=== PATIENT | female | born 1940 | race Caucasian/White ===

== ENCOUNTER 2016-04-21 08:10 | Outpatient (CLI) | payer MEDICARE, OTHER | END 2016-04-21 08:11 | disposition home or self-care (01) | DX: Z12.31 Encounter for screening mammogram for malignant neoplasm of breast (principal) ==

== ENCOUNTER 2017-05-24 06:48 | Outpatient (CLI) | payer MEDICARE, OTHER ==
[2017-05-24 07:05] LABS: BASOPHILS # (AUTO) 0.1 10^3/uL (0.0-0.1); BASOPHILS % (AUTO) 1.1 %; EOSINOPHILS # (AUTO) 0.3 10^3/uL (0.0-0.7); EOSINOPHILS % (AUTO) 2.8 %; HGB - HEMOGLOBIN 13.7 g/dL (12.0-16.0); LYMPHOCYTES # (AUTO) 1.5 10^3/uL (1.5-3.5); LYMPHOCYTES % (AUTO) 16.6 %; MEAN CORPUSCULAR HEMOGLOBIN 29.9 pg (27.0-31.0); MEAN CORPUSCULAR HGB CONC 32.8 g/dL (32.0-36.0); MEAN CORPUSCULAR VOLUME 90.9 fL (81.0-99.0); MEAN PLATELET VOLUME 8.1 fL (7.9-10.8); MONOCYTES # (AUTO) 0.5 10^3/uL (0.0-1.0); MONOCYTES % (AUTO) 5.2 %; NEUTROPHILS # (AUTO) 6.8 10^3/uL (1.5-6.6); NEUTROPHILS % (AUTO) 74.3 %; PLT - PLATELET COUNT 218 10^3/uL (130-450); RED CELL DISTRIBUTION WIDTH 13.5 % (12.0-15.0); WHITE BLOOD COUNT 9.1 x10^3/uL (4.8-10.8)
[2017-05-24 07:20] LABS: ALBUMIN 4.3 g/dL (3.2-5.5); ALBUMIN/GLOBULIN RATIO 1.3 (1.0-2.2); ALKALINE PHOSPHATASE 65 IU/L (42-121); ALT ALANINE AMINOTRANSFERASE 21 IU/L (10-60); AST ASPARTATE AMINOTRANSFERASE 23 IU/L (10-42); BILIRUBIN,TOTAL 0.5 mg/dL (0.2-1.0); BUN - BLOOD UREA NITROGEN 22 mg/dL (6-20); CARBON DIOXIDE - CO2 24 mmol/L (21-32); CHLORIDE 99 mmol/L (101-111); CHOL/HDL RATIO 3.7 (<4.4); CHOLESTEROL 157 mg/dL; GFR - MDRD 54 (>89); GLUCOSE 137 mg/dL (70-100); HDL CHOLESTEROL 42 mg/dL; LDL CHOLESTEROL,CALCULATED 96 mg/dL; LDL/HDL RATIO 2.3 (<4.4); SODIUM 136 mmol/L (135-145); TOTAL PROTEIN 7.5 g/dL (6.7-8.2); VLDL CHOLESTEROL 19 mg/dL
[2017-05-24 07:22] LABS: HB2 TOTAL 15.5 g/dL; HEMOGLOBIN A1C 0.72 g/dL; HEMOGLOBIN A1C % 6.4 % (4.6-6.2)
[2017-05-24 08:19] LABS: THYROID STIMULATING HORMONE 2.88 uIU/mL (0.34-5.60)
[2017-05-24 10:50] LABS: BILIRUBIN,URINE NEGATIVE (NEGATIVE); GLUCOSE, URINE (UA) NEGATIVE (NEGATIVE); KETONES,URINE (UA) NEGATIVE (NEGATIVE); LEUKOCYTE ESTERASE, URINE TRACE (NEGATIVE); NITRITE,URINE NEGATIVE (NEGATIVE); OCCULT BLOOD,URINE NEGATIVE (NEGATIVE); PROTEIN,URINE NEGATIVE (NEGATIVE); UROBILINOGEN,URINE 0.2 (NORMAL) E.U./dL (NORMAL)
[2017-05-24 10:57] LABS: CLARITY,URINE CLEAR (CLEAR)
[2017-05-24 11:11] LABS: RBC,URINE 0-5 /HPF (0-5); SQUAMOUS EPITHELIAL CELL,UR RARE Squamous (<= Few)
[2017-05-24 11:12] LABS: BACTERIA,URINE Rare /HPF (None Seen)
[2017-05-24 11:21] LABS: CREATININE,URINE 115.9 mg/dL; PROTEIN/CREATININE RATIO,URINE 0.2 (<=0.2)
== END 2017-05-24 06:49 | disposition home or self-care (01) ==
LOC: LAB 06:48
PROVIDERS: ATTEND Internal Medicine
DX: Z79.899 Other long term (current) drug therapy (principal); I10 Essential (primary) hypertension; R74.8 Abnormal levels of other serum enzymes; Z87.19 Personal history of other diseases of the digestive system; G43.909 Migraine, unspecified, not intractable, without status migrainosus; E11.9 Type 2 diabetes mellitus without complications; M85.80 Other specified disorders of bone density and structure, unspecified site; Z86.19 Personal history of other infectious and parasitic diseases; R63.0 Anorexia; E53.8 Deficiency of other specified B group vitamins
CPT/HCPCS: 36415; 80053; 80061; 81001; 82570; 82607; 83036; 83721; 84156; 84443; 85025; 87086

== ENCOUNTER 2017-05-24 07:03 | Outpatient (CLI) | payer MEDICARE, OTHER ==
--- NOTE | 2017-05-25 16:51 | Mammography Report ---
DIGITAL SCREENING MAMMOGRAM: 05/24/2017 CLINICAL INDICATION: A 77-year-old with history of benign right breast biopsy, for screening. COMPARISON: 04/2016, 03/2015, 03/2014, 12/2012, 08/2011, 07/2010, 06/2009. TECHNIQUE: Routine CC and MLO projections were obtained of the breasts. FINDINGS: The breasts demonstrate scattered fibroglandular densities bilaterally. Coarse and punctate, typically benign calcifications are present. No suspicious masses, clustered microcalcifications, or regions of architectural distortion are identified. IMPRESSION: BENIGN FINDINGS. RECOMMENDATION: ROUTINE ANNUAL SCREENING UNLESS OTHERWISE CLINICALLY INDICATED. BIRADS CATEGORY 2-BENIGN FINDINGS. STANDARD QUALIFYING STATEMENTS: 1. This examination was reviewed with the aid of Computer-Aided Detection (CAD). 2. A negative or benign imaging report should not delay biopsy if clinically suspicious findings are present. Consider surgical consultation if warranted. More than 5% of cancers are not identified by imaging. 3. Dense breasts may obscure an underlying neoplasm. TD: 05/25/2017 16:47
== END 2017-05-24 07:04 | disposition home or self-care (01) ==
LOC: DI 07:03
PROVIDERS: ATTEND Internal Medicine
DX: Z12.31 Encounter for screening mammogram for malignant neoplasm of breast (principal)
CPT/HCPCS: 77067

== ENCOUNTER 2018-06-18 07:34 | Outpatient (CLI) | payer MEDICARE, OTHER ==
[2018-06-18 08:00] LABS: BASOPHILS % (AUTO) 0.8 %; EOSINOPHILS # (AUTO) 0.1 10^3/uL (0.0-0.7); EOSINOPHILS % (AUTO) 1.9 %; HGB - HEMOGLOBIN 13.8 g/dL (12.0-16.0); LYMPHOCYTES # (AUTO) 1.6 10^3/uL (1.5-3.5); LYMPHOCYTES % (AUTO) 30.7 %; MEAN CORPUSCULAR HEMOGLOBIN 30.2 pg (27.0-31.0); MEAN CORPUSCULAR HGB CONC 33.5 g/dL (32.0-36.0); MEAN CORPUSCULAR VOLUME 90.1 fL (81.0-99.0); MEAN PLATELET VOLUME 8.3 fL (7.9-10.8); MONOCYTES # (AUTO) 0.4 10^3/uL (0.0-1.0); MONOCYTES % (AUTO) 8.2 %; NEUTROPHILS % (AUTO) 58.4 %; PLT - PLATELET COUNT 222 10^3/uL (130-450); RED BLOOD COUNT 4.55 10^6/uL (4.20-5.40); RED CELL DISTRIBUTION WIDTH 12.7 % (12.0-15.0); WHITE BLOOD COUNT 5.2 x10^3/uL (4.8-10.8)
[2018-06-18 08:18] LABS: HB2 TOTAL 15.4 g/dL; HEMOGLOBIN A1C 0.72 g/dL; HEMOGLOBIN A1C % 6.4 % (4.6-6.2)
[2018-06-18 08:34] LABS: ALBUMIN 4.1 g/dL (3.2-5.5); ALBUMIN/GLOBULIN RATIO 1.1 (1.0-2.2); ALKALINE PHOSPHATASE 69 IU/L (42-121); ALT ALANINE AMINOTRANSFERASE 33 IU/L (10-60); AST ASPARTATE AMINOTRANSFERASE 32 IU/L (10-42); BILIRUBIN,TOTAL 0.9 mg/dL (0.2-1.0); BUN - BLOOD UREA NITROGEN 19 mg/dL (6-20); CHOL/HDL RATIO 4.3 (<4.4); CHOLESTEROL 149 mg/dL; GFR - MDRD 54 (>89); HDL CHOLESTEROL 35 mg/dL; LDL CHOLESTEROL,CALCULATED 84 mg/dL; LDL/HDL RATIO 2.4 (<4.4); TOTAL PROTEIN 7.7 g/dL (6.7-8.2); VLDL CHOLESTEROL 30 mg/dL
[2018-06-18 09:15] LABS: CALCIUM 9.8 mg/dL (8.5-10.3); CARBON DIOXIDE - CO2 28 mmol/L (21-32); CHLORIDE 98 mmol/L (101-111); GLUCOSE 129 mg/dL (70-100); SODIUM 139 mmol/L (135-145)
[2018-06-18 10:03] LABS: THYROID STIMULATING HORMONE 2.26 uIU/mL (0.34-5.60)
== END 2018-06-18 07:35 | disposition home or self-care (01) ==
LOC: LAB 07:34
PROVIDERS: ATTEND Internal Medicine
DX: R19.7 Diarrhea, unspecified (principal); I10 Essential (primary) hypertension; R74.8 Abnormal levels of other serum enzymes; E53.8 Deficiency of other specified B group vitamins; E11.9 Type 2 diabetes mellitus without complications; Z79.899 Other long term (current) drug therapy
CPT/HCPCS: 36415; 80053; 80061; 81001; 81003; 82043; 82570; 82607; 83036; 83721; 84443; 85025; 87086

== ENCOUNTER 2018-06-20 09:00 | Outpatient (CLI) | payer MEDICARE, OTHER ==
--- NOTE | 2018-06-21 09:03 | Mammography Report ---
Reason: SCREENING MAMMO Procedure Date: 06/20/2018 Accession Number: [id number] / [id number] Procedure: GLENDY - Screening Mammo w/Gee CPT Code: FULL RESULT: EXAM: Screening Mammo w/Gee DATE: 06/20/2018 10:19 AM CLINICAL HISTORY: Screening encounter. History of greater than 20 years of hormone therapy. History of breast biopsy of the right breast, benign results. TECHNIQUE: Bilateral CC and MLO views were obtained. COMPARISON: 06/13/2017 through 03/31/2014. FINDINGS: The breasts demonstrate scattered fibroglandular densities bilaterally. There are coarse typically benign calcifications. No suspicious masses, clustered microcalcifications, or regions of architectural distortion are identified. IMPRESSION: Benign findings RECOMMENDATION: Routine annual screening unless otherwise clinically indicated. BIRADS CATEGORY 2: Benign findings STANDARD QUALIFYING STATEMENTS: 1. This examination was not reviewed with the aid of Computer-Aided Detection (CAD). 2. A negative or benign imaging report should not delay biopsy if clinically suspicious findings are present. Consider surgical consultation if warrented. More than 5% of cancers are not identified by imaging. 3. Dense breasts may obscure an underlying neoplasm. 4. This examination was reviewed with the aid of 3D breast imaging (tomosynthesis).
== END 2018-06-20 09:01 | disposition home or self-care (01) ==
LOC: DI 09:00
PROVIDERS: ATTEND Internal Medicine
DX: Z12.31 Encounter for screening mammogram for malignant neoplasm of breast (principal)
CPT/HCPCS: 77063; 77067

== ENCOUNTER 2019-12-03 08:13 | Outpatient (CLI) | payer MEDICARE, OTHER ==
--- NOTE | 2019-12-04 10:04 | Mammography Report ---
BILATERAL DIGITAL SCREENING MAMMOGRAM 3D/2D: 12/03/2019 CLINICAL: Routine screening. Comparison is made to exams dated: 06/20/2018 mammogram, 05/24/2017 mammogram, 04/21/2016 mammogram, 03/31 mammogram, 03/31/2014 mammogram, and 01/07/2013 mammogram - [facility]. There are scattered fibroglandular elements in both breasts. No significant masses, calcifications, or other findings are seen in either breast. There has been no significant interval change. IMPRESSION: NEGATIVE There is no mammographic evidence of malignancy. A 1 year screening mammogram is recommended. This exam was interpreted at Station ID: [id number]. NOTE: For mammograms, a report in lay terms will be sent to the patient. Approximately 15% of breast malignancies will not be visualized mammographically. In the management of a palpable breast mass, a negative mammogram must not discourage biopsy of a clinically suspicious lesion. Electronically Signed By: Shante leong/facundo:12/03/2019 11:38:42 ACR BI-RADS Category 1: Negative 3341F PARENCHYMAL PATTERN: (A) - The breast(s) demonstrate(s) scattered fibroglandular densities. BI-RADS CATEGORY: (1) - 1 RECOMMENDATION: (ANNUAL) - Recommend routine annual screening mammography. [id number] 1 year screening LATERALITY: (B)
== END 2019-12-03 08:14 | disposition home or self-care (01) ==
LOC: DI 08:13
PROVIDERS: ATTEND Internal Medicine
DX: Z12.31 Encounter for screening mammogram for malignant neoplasm of breast (principal)
CPT/HCPCS: 77063; 77067

== ENCOUNTER 2020-06-03 11:38 | Outpatient (CLI) | payer MEDICARE, OTHER ==
--- NOTE | 2020-06-03 15:39 | XRAY Report ---
PROCEDURE: Wrist 3 View RT INDICATIONS: RIGHT WRIST PAIN TECHNIQUE: 3 views of the wrist were acquired. COMPARISON: None. FINDINGS: Bones: No acute fractures or dislocations. No suspicious bony lesions. There are severe degenerati ve changes involving the base of the right first and second carpometacarpal joints. Prominent margina l osteophyte formation and surrounding soft tissue calcifications. Degenerative changes of the trisca phe joint. Scaphoid view: Scaphoid appears intact. Scapholunate interval is maintained. Soft tissues: No suspicious soft tissue calcifications. There appears to be soft tissue calcificati ons involving the triangular fibrocartilage complex compatible with chondrocalcinosis. IMPRESSION: Right wrist without acute fracture or dislocation. Severe degenerative changes of the right wrist involving the first and second carpometacarpal joints. Mild degenerative changes of the right triscaphe joint. Reviewed by: Kal Nunez MD on 06/03/2020 3:38 PM PST Approved by: Kal Nunez MD on 06/03/2020 3:38 PM PST Station ID: [id number]
== END 2020-06-03 11:39 | disposition home or self-care (01) ==
LOC: DI 11:38
PROVIDERS: ATTEND Internal Medicine
DX: M25.531 Pain in right wrist (principal); M19.031 Primary osteoarthritis, right wrist

== ENCOUNTER 2020-12-29 07:53 | Outpatient (CLI) | payer MEDICARE, OTHER ==
--- NOTE | 2020-12-29 08:09 | XRAY Report ---
PROCEDURE: Chest 2 View X-Ray INDICATIONS: COUGH TECHNIQUE: 2 view(s) of the chest. COMPARISON: None. FINDINGS: Surgical changes and devices: None. Lungs and pleura: No pleural effusions or pneumothorax. Lungs are clear. Mediastinum: Mediastinal contours are normal. Heart size is normal. Bones and chest wall: No suspicious bony abnormalities. Soft tissues appear unremarkable. IMPRESSION: No evidence acute pulmonary process. Reviewed by: Santhosh Still MD on 12/29/2020 8:08 AM PDT Approved by: Santhosh Still MD on 12/29/2020 8:08 AM PDT Station ID: [id number]
--- NOTE | 2020-12-29 10:02 | MRI Report ---
PROCEDURE: Brain W/O INDICATIONS: DYSARTHRIA TECHNIQUE: Noncontrast axial T1 spin echo, axial T2 fast spin echo, sagittal and axial FLAIR, coronal T2 fast sp in echo, axial gradient echo, axial diffusion and ADC through the brain. COMPARISON: None. FINDINGS: Image quality: Excellent. CSF Spaces: Basal cisterns are patent. No extra-axial fluid collections. Ventricles are normal in size and shape. Brain: No intracranial masses or hemorrhage. Rubio/white matter interface is normal. Age-related vol ume loss and mild small vessel ischemic change. Brainstem appears normal. Diffusion-weighted images demonstrate no acute ischemic insult. Tiny old anterior pontine lacunar infarction with hemosiderin d eposition. Tiny old anterior right thalamic lacunar infarction with hemosiderin deposition. Old tiny left body of caudate lacunar infarct. Normal intravascular flow voids are present. Skull and face: Calvarium has normal marrow signal. Orbits appear normal. Sinuses: Sinuses and mastoids are clear. IMPRESSION: 1. 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 2. Age-related volume loss and mild small vessel ischemic change. 3. No evidence of acute stroke, hemorrhage, or mass. Reviewed by: Santhosh Still MD on 12/29/2020 10:01 AM PDT Approved by: Santhosh Still MD on 12/29/2020 10:01 AM PDT Station ID: [id number]
== END 2020-12-29 07:54 | disposition home or self-care (01) ==
LOC: DI 07:53
PROVIDERS: ATTEND Internal Medicine
DX: R05 Cough (principal); R47.1 Dysarthria and anarthria; Z86.73 Personal history of transient ischemic attack (TIA), and cerebral infarction without residual deficits

== ENCOUNTER 2021-01-06 08:13 | Outpatient (CLI) | payer MEDICARE, OTHER ==
--- NOTE | 2021-01-07 08:42 | Mammography Report ---
BILATERAL DIGITAL SCREENING MAMMOGRAM 3D/2D: 01/06/2021 CLINICAL: Routine screening. Comparison is made to exams dated: 12/03/2019 mammogram, 06/20/2018 mammogram, 05/24/2017 mammogram, 2016 mammogram, 03/31/2015 mammogram, and 03/31/2014 mammogram - [facility]. There are scattered fibroglandular elements in both breasts. No significant masses, calcifications, or other findings are seen in either breast. There has been no significant interval change. IMPRESSION: NEGATIVE There is no mammographic evidence of malignancy. A 1 year screening mammogram is recommended. This exam was interpreted at Station ID: [id number]. NOTE: For mammograms, a report in lay terms will be sent to the patient. Approximately 15% of breast malignancies will not be visualized mammographically. In the management of a palpable breast mass, a negative mammogram must not discourage biopsy of a clinically suspicious lesion. Electronically Signed By: Kal cesar/facundo:01/06/2021 09:19:02 ACR BI-RADS Category 1: Negative 3341F PARENCHYMAL PATTERN: (A) - The breast(s) demonstrate(s) scattered fibroglandular densities. BI-RADS CATEGORY: (1) - 1 RECOMMENDATION: (ANNUAL) - Recommend routine annual screening mammography. [id number] 1 year screening LATERALITY: (B)
== END 2021-01-06 08:14 | disposition home or self-care (01) ==
LOC: DI 08:13
PROVIDERS: ATTEND Internal Medicine
DX: Z12.31 Encounter for screening mammogram for malignant neoplasm of breast (principal)

== ENCOUNTER 2021-02-09 07:01 | Outpatient (CLI) | payer MEDICARE, OTHER ==
--- NOTE | 2021-02-09 08:38 | Ultrasound Report ---
PROCEDURE: Carotid Doppler Complete INDICATIONS: CVA TECHNIQUE: Color and pulse Doppler interrogation was performed of both carotid systems, with image documentation and velocity measurements. COMPARISON: None. FINDINGS: Right side: Brachial blood pressure: 142/60 mm Hg. Common carotid artery peak systolic velocity: 78 cm/sec. Internal carotid artery peak systolic velocity: 65.1 cm/sec. Internal carotid artery end diastolic velocity: 22.4 cm/sec. External carotid artery peak systolic velocity: 82.7 cm/sec. ICA/CCA peak systolic ratio: 0.8 . Rubio scale imaging description: Mild atheromatous change with intimal thickening. Percent internal carotid artery stenosis: Less than 50% . Vertebral artery: Flow direction is antegrade. Left side: Brachial blood pressure: 133/65 mm Hg. Common carotid artery peak systolic velocity: 60.1 cm/sec. Internal carotid artery peak systolic velocity: 95.8 cm/sec. Internal carotid artery end diastolic velocity: 21 cm/sec. External carotid artery peak systolic velocity: 83.6 cm/sec. ICA/CCA peak systolic ratio: 0.6 . Rubio scale imaging description: Mild atheromatous change with intimal thickening. Percent internal carotid artery stenosis: Less than 50% . Vertebral artery: Flow direction is antegrade. IMPRESSION: No significant abnormality. The estimate of stenosis included in the report of the imaging study was calculated using the NASCET method Reviewed by: Ezequiel Dugan MD on 02/09/2021 8:37 AM PDT Approved by: Ezequiel Dugan MD on 02/09/2021 8:37 AM PDT Station ID: [id number]
== END 2021-02-09 07:02 | disposition home or self-care (01) ==
LOC: DI 07:01
PROVIDERS: ATTEND Internal Medicine
DX: I63.9 Cerebral infarction, unspecified (principal)
CPT/HCPCS: 93306; 93880

== ENCOUNTER 2021-05-31 16:22 | Outpatient (CLI) | payer MEDICARE, OTHER ==
[2021-05-31 16:41] LABS: CALCIUM 9.5 mg/dL (8.5-10.3); CREATININE 2.1 mg/dL (0.4-1.0); POTASSIUM 4.4 mmol/L (3.5-5.0)
[2021-05-31 21:11] LABS: ESTIMATED AVERAGE GLUCOSE 171 mg/dL (70-100); HEMOGLOBIN A1c% 7.6 % (4.27-6.07)
== END 2021-05-31 16:23 | disposition home or self-care (01) ==
LOC: LAB.R 16:22
PROVIDERS: ATTEND Internal Medicine
DX: M25.50 Pain in unspecified joint (principal); I63.9 Cerebral infarction, unspecified; E11.9 Type 2 diabetes mellitus without complications
CPT/HCPCS: 80048; 83036

== ENCOUNTER 2021-07-22 10:33 | Outpatient (CLI) | payer MEDICARE, OTHER ==
--- NOTE | 2021-07-22 19:36 | Ultrasound Report ---
PROCEDURE: Renal ultrasound INDICATIONS: KIDNEY INJURY TECHNIQUE: Real-time scanning was performed of the retroperitoneal organs, with image documentation. COMPARISON: None. FINDINGS: Kidneys: Kidneys are normal in size. Right kidney measures 8.0 cm long; left kidney measures 9.0 cm long. Right renal cortical thickness is 0.9 cm; left renal cortical thickness is 1.1 cm. Left-sided renal simple renal cysts measure up to 1.1 cm. Mild right renal cortical thinning. On the right, the superior, mid and inferior resistive indices are 0.63, 0.66, 0.63 respectively. Similarly on the left, the superior, mid and inferior resistive indices are 0.55, 0.63, 0.62 respecti vely Bladder: Pre-void bladder volume is 254 mL. Post-void residual is 80 mL. Pre-void images demonstra te no intraluminal masses or stones. On pre-void images, both ureteral jets are noted with color Dop pler interrogation. (Of note, ureteral jets may not be detectable in up to 25% of cases due to insuf ficient differences in specific gravity between ureteral and bladder urine). Miscellaneous: No free abdominal fluid. IMPRESSION: 1. Right renal cortical thinning and left renal simple cysts. 2. Normal resistive indices. 3. Postvoid residual measures 80 cc Reviewed by: Seamus Oneill MD on 07/22/2021 6:34 PM JS Approved by: Seamus Oneill MD on 07/22/2021 6:34 PM AKDIMAS Station ID: [id number]
== END 2021-07-22 10:34 | disposition home or self-care (01) ==
LOC: DI 10:33
PROVIDERS: ATTEND Internal Medicine Nephrology
DX: N17.9 Acute kidney failure, unspecified (principal); N28.1 Cyst of kidney, acquired

== ENCOUNTER 2021-07-28 10:17 | Outpatient (CLI) | payer MEDICARE, OTHER ==
[2021-07-28 10:34] LABS: BASOPHILS # (AUTO) 0.1 10^3/uL (0.0-0.1); BASOPHILS % (AUTO) 0.8 %; EOSINOPHILS # (AUTO) 0.2 10^3/uL (0.0-0.7); EOSINOPHILS % (AUTO) 3.6 %; HCT - HEMATOCRIT 37.2 % (37.0-47.0); HGB - HEMOGLOBIN 12.3 g/dL (12.0-16.0); LYMPHOCYTES # (AUTO) 1.3 10^3/uL (1.5-3.5); LYMPHOCYTES % (AUTO) 21.2 %; MEAN CORPUSCULAR HEMOGLOBIN 30.7 pg (27.0-31.0); MEAN CORPUSCULAR HGB CONC 33.1 g/dL (32.0-36.0); MEAN CORPUSCULAR VOLUME 92.8 fL (81.0-99.0); MEAN PLATELET VOLUME 10.9 fL (7.9-10.8); MONOCYTES # (AUTO) 0.5 10^3/uL (0.0-1.0); MONOCYTES % (AUTO) 7.3 %; NEUTROPHILS # (AUTO) 4.2 10^3/uL (1.5-6.6); NEUTROPHILS % (AUTO) 66.6 %; PLT - PLATELET COUNT 180 10^3/uL (130-450); RED BLOOD COUNT 4.01 10^6/uL (4.20-5.40); RED CELL DISTRIBUTION WIDTH 12.8 % (12.0-15.0); WHITE BLOOD COUNT 6.3 x10^3/uL (4.8-10.8)
[2021-07-28 10:44] LABS: CALCIUM 9.2 mg/dL (8.5-10.3); CREATININE 1.7 mg/dL (0.4-1.0)
[2021-07-30 21:05] LABS: ALBUMIN 3.9 g/dL (3.8-4.8); ALPHA 1 GLOBULIN 0.3 g/dL (0.2-0.3); ALPHA 2 GLOBULIN 0.8 g/dL (0.5-0.9); BETA 1 GLOBULIN 0.5 g/dL (0.4-0.6); BETA 2 GLOBULIN 0.4 g/dL (0.2-0.5)
== END 2021-07-28 10:18 | disposition home or self-care (01) ==
LOC: LAB 10:17
PROVIDERS: ATTEND Internal Medicine Nephrology
DX: N17.9 Acute kidney failure, unspecified (principal); D63.1 Anemia in chronic kidney disease
CPT/HCPCS: 36415; 80048; 81599; 84155; 84165; 85025; 86021; 86036

== ENCOUNTER 2021-08-15 13:19 | Outpatient (CLI) | payer MEDICARE, OTHER ==
[2021-08-15 13:43] LABS: CREATININE 1.6 mg/dL (0.4-1.0)
== END 2021-08-15 13:20 | disposition home or self-care (01) ==
LOC: LAB 13:19
PROVIDERS: ATTEND Internal Medicine Nephrology
DX: N05.9 Unspecified nephritic syndrome with unspecified morphologic changes (principal)
CPT/HCPCS: 36415; 82565

== ENCOUNTER 2021-09-14 13:14 | Outpatient (CLI) | payer MEDICARE, OTHER ==
[2021-09-14 13:37] LABS: CREATININE 1.6 mg/dL (0.4-1.0)
== END 2021-09-14 13:15 | disposition home or self-care (01) ==
LOC: LAB 13:14
PROVIDERS: ATTEND Internal Medicine Nephrology
DX: N05.9 Unspecified nephritic syndrome with unspecified morphologic changes (principal)
CPT/HCPCS: 36415; 82565

== ENCOUNTER 2022-01-13 07:40 | Outpatient (CLI) | payer MEDICARE, OTHER ==
--- NOTE | 2022-01-16 10:05 | Mammography Report ---
BILATERAL DIGITAL SCREENING MAMMOGRAM 3D/2D: 01/13/2022 CLINICAL: Routine screening. Comparison is made to exams dated: 01/06/2021 mammogram, 12/03/2019 mammogram, 06/20/2018 mammogram, 05/24 mammogram, 04/21/2016 mammogram, and 03/31/2015 mammogram - [facility]. There are scattered areas of fibroglandular density in both breasts (category b / 25%-50% glandular t issue). There is a benign calcification in the right breast. There also are benign calcifications in the lef t breast. No significant masses, calcifications, or other findings are seen in either breast. There has been no significant interval change. IMPRESSION: BENIGN There is no mammographic evidence of malignancy. A 1 year screening mammogram is recommended. Based on the Tyrer Cuzick model (a risk assessment model) the patients lifetime risk is 1.2% and her 10 year risk is 0.0%. According to the ACR, ACS, and NCCN guidelines, an annual breast MRI exam trina g with mammogram is recommended if the patients lifetime risk is 20% or greater. This exam was interpreted at Station ID: [id number]. NOTE: For mammograms, a report in lay terms will be sent to the patient. Approximately 15% of breast malignancies will not be visualized mammographically. In the management of a palpable breast mass, a negative mammogram must not discourage biopsy of a clinically suspicious lesion. Electronically Signed By: Maite tsang/marlarad:01/13/2022 11:51:47 ACR BI-RADS Category 2: Benign Finding(s) 3342F PARENCHYMAL PATTERN: (A) - The breast(s) demonstrate(s) scattered fibroglandular densities. BI-RADS CATEGORY: (2) - 2 RECOMMENDATION: (ANNUAL) - Recommend routine annual screening mammography. [id number] 1 year screening LATERALITY: (B)
== END 2022-01-13 07:41 | disposition home or self-care (01) ==
LOC: DI 07:40
PROVIDERS: ATTEND Internal Medicine
DX: Z12.31 Encounter for screening mammogram for malignant neoplasm of breast (principal)

== ENCOUNTER 2022-01-13 10:03 | Outpatient (CLI) | payer MEDICARE, OTHER ==
[2022-01-13 10:23] LABS: BASOPHILS # (AUTO) 0.1 10^3/uL (0.0-0.1); BASOPHILS % (AUTO) 0.7 %; EOSINOPHILS # (AUTO) 0.2 10^3/uL (0.0-0.7); EOSINOPHILS % (AUTO) 2.7 %; HCT - HEMATOCRIT 41.4 % (37.0-47.0); HGB - HEMOGLOBIN 13.7 g/dL (12.0-16.0); LYMPHOCYTES # (AUTO) 1.4 10^3/uL (1.5-3.5); LYMPHOCYTES % (AUTO) 20.8 %; MEAN CORPUSCULAR HEMOGLOBIN 30.7 pg (27.0-31.0); MEAN CORPUSCULAR HGB CONC 33.1 g/dL (32.0-36.0); MEAN CORPUSCULAR VOLUME 92.8 fL (81.0-99.0); MEAN PLATELET VOLUME 10.3 fL (7.9-10.8); MONOCYTES # (AUTO) 0.5 10^3/uL (0.0-1.0); MONOCYTES % (AUTO) 7.4 %; NEUTROPHILS # (AUTO) 4.6 10^3/uL (1.5-6.6); NEUTROPHILS % (AUTO) 68.1 %; PLT - PLATELET COUNT 203 10^3/uL (130-450); RED BLOOD COUNT 4.46 10^6/uL (4.20-5.40); RED CELL DISTRIBUTION WIDTH 12.8 % (12.0-15.0); WHITE BLOOD COUNT 6.7 x10^3/uL (4.8-10.8)
[2022-01-13 10:36] LABS: CREATININE 1.5 mg/dL (0.4-1.0); PHOSPHORUS 3.2 mg/dL (2.5-4.6); POTASSIUM 4.2 mmol/L (3.5-5.0)
[2022-01-13 10:41] LABS: CREATININE,URINE 89.9 mg/dL; PROTEIN/CREATININE RATIO,URINE 0.2 (<=0.2)
== END 2022-01-13 10:04 | disposition home or self-care (01) ==
LOC: LAB 10:03
PROVIDERS: ATTEND Internal Medicine Nephrology
DX: N05.9 Unspecified nephritic syndrome with unspecified morphologic changes (principal); D70.9 Neutropenia, unspecified; D63.1 Anemia in chronic kidney disease; E83.30 Disorder of phosphorus metabolism, unspecified; N25.81 Secondary hyperparathyroidism of renal origin; R80.9 Proteinuria, unspecified
CPT/HCPCS: 36415; 80048; 82570; 83970; 84100; 84156; 85025

== ENCOUNTER 2023-02-05 09:44 | Outpatient (CLI) | payer MEDICARE, OTHER ==
--- NOTE | 2023-02-06 10:12 | Mammography Report ---
BILATERAL DIGITAL SCREENING MAMMOGRAM 3D/2D: 02/05/2023 CLINICAL: Routine screening. Comparison is made to exams dated: 01/13/2022 mammogram, 01/06/2021 mammogram, 12/03/2019 mammogram, 06/20/2018 mammogram, 05/24/2017 mammogram, and 04/21/2016 mammogram - [facility]. There are scattered areas of fibroglandular density in both breasts (category b / 25%-50% glandular t issue). No significant masses, calcifications, or other findings are seen in either breast. IMPRESSION: NEGATIVE There is no mammographic evidence of malignancy. A 1 year screening mammogram is recommended. Based on the Tyrer Cuzick model (a risk assessment model) the patients lifetime risk is 0.4% and her 10 year risk is 0.0%. According to the ACR, ACS, and NCCN guidelines, an annual breast MRI exam trina g with mammogram is recommended if the patients lifetime risk is 20% or greater. This exam was interpreted at Station ID: [id number]. NOTE: For mammograms, a report in lay terms will be sent to the patient. Approximately 15% of breast malignancies will not be visualized mammographically. In the management of a palpable breast mass, a negative mammogram must not discourage biopsy of a clinically suspicious lesion. Electronically Signed By: Samira Max M.D., PH.D ryan/facundo:02/05/2023 20:03:37 letter sent: No_Letter ACR BI-RADS Category 1: Negative 3341F PARENCHYMAL PATTERN: (A) - The breast(s) demonstrate(s) scattered fibroglandular densities. BI-RADS CATEGORY: (1) - 1 Mammogram [id number] 1 year screening LATERALITY: (B)
== END 2023-02-05 09:45 | disposition home or self-care (01) ==
LOC: DI 09:44
PROVIDERS: ATTEND Internal Medicine
DX: Z12.31 Encounter for screening mammogram for malignant neoplasm of breast (principal); R92.323 Mammographic fibroglandular density, bilateral breasts

== ENCOUNTER 2024-08-29 08:35 | Inpatient (IN) ==
--- NOTE | 2024-08-29 09:11 | ED Physician Documentation ---
PD HPI NVD Stated complaint Stated Complaint: NV Chief complaint Chief Complaint: Abd Pain History obtained from History obtained from: Patient and Friend Additonal information Additional information: Ivonne Rivera is an 84-year-old female who complains of urinary frequency and urgency after having some incontinence over the past month. She has had the urgency and frequency for the past 3 days. She has also developed some nausea and vomiting today. She is brought to the hospital by a neighbor. 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 She denies any cough or shortness of breath.She does have a history of diabetes and renal insufficiency. [place] Coma Scale Assess Eye opening: Spontaneous Verbal response: Oriented Motor response: Obeys Commands Total score: 15 Review of Systems The patient denies cough or fever she is complaining of urinary urgency and frequency as well as weakness. Meds/Allgy Home Medications Ambulatory Orders Medication Instructions Recorded Confirmed acetaminophen 500 mg tablet 500 mg PO Q6H PRN pain 08/29/24 (Tylenol Extra Strength) aspirin 81 mg tablet 81 mg PO DAILY 08/29/2408/14 glipizide 2.5 mg tablet, extended 2.5 mg PO .QD 08/29/24 release 24 hr lisinopril 40 mg tablet 20 mg PO .QD 08/29/24 metoprolol succinate 25 mg 12.5 mg PO .QHS 08/29/24 tablet,extended release 24 hr metronidazole 0.75 % topical gel 1 applic topical BID 08/29/24 08/29/24 Allergies Allergies Allergy/AdvReac Type Severity Reaction Status Date / Time cephalexin (From Keflex) Allergy Unknown Unknown Verified 08/29/24 08:50 Tetracyclines Allergy Unknown Unknown Verified 08/29/24 08:50 PFSH Active Problems All Active Problems (Updated 08/29/24 @ 15:53 by Sarthak Montalvo MD) CKD (chronic kidney disease) stage 4, GFR 15-29 ml/min (Acute) HTN (hypertension) (Acute) Urinary tract infection (Acute) Dehydration (Acute) Medical History Medical History Hx of completed stroke Diabetes Social History Social History Smoking Status: Never smoker Relationship: Level: Independent Do you feel safe in your home environment?: Yes Suffered physical, verbal, emotional, or financial abuse?: No Substance Use: denies use Exam Exam Vital Signs: Vital Signs x48h Temp Pulse Resp BP Pulse Ox 08/29/24 14:00 87 18 171/79 H 95 08/29/24 12:00 84 18 158/85 H 95 08/29/24 10:53 73 15 152/78 H 98 08/29/24 08:57 154/66 H 08/29/24 08:40 36.7 C 91 18 97 Pleasant 84-year-old female with some dysarthric speech gives adequate history. She does not appear to be in distress her vital signs show a normal pulse and respiration she is somewhat hypertensive and she has normal oxygen saturation. She is afebrile. Constitutional normal general appearance, no apparent distress and average body habitus HENMT normocephalic and head/scalp atraumatic Eyes PERRL and EOMs intact bilaterally Respiratory breath sounds equal bilaterally, normal respiratory effort and clear to auscultation bilaterally Cardiovascular normal heart rate noted, regular rhythm noted and no murmur Gastrointestinal abdomen normal to inspection, abdomen soft to palpation and nontender to palpation Genitourinary no CVA tenderness Back/Pelvis spine normal to inspection, no thoracic spine tenderness and no lumbar spine tenderness Extremities normal to inspection 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 Psychiatry mental status grossly normal Results Vitals Vitals: Vital Signs - 24 hr 08/29/24 08:40 08/29/24 08:57 08/29/24 10:53 Temperature 36.7 C Temperature Source Temporal Artery Scan Pulse Rate 91 73 Respiratory Rate 18 15 Blood Pressure 154/66 H 152/78 H O2 Saturation 97 98 O2 Source Room air Room air Pain Intensity 0 08/29/24 12:00 08/29/24 14:00 Temperature Temperature Source Pulse Rate 84 87 Respiratory Rate 18 18 Blood Pressure 158/85 H 171/79 H O2 Saturation 95 95 O2 Source Room air Room air Pain Intensity Oxygen O2 Source Room air Labs Labs: Laboratory Tests 08/29/24 08/29/24 09:40 11:09 WBC 7.4 RBC 4.26 Hgb 13.1 Hct 40.4 MCV 94.8 MCH 30.8 MCHC 32.4 RDW 12.2 Plt Count 190 MPV 10.7 Neut # (Auto) 6.1 Lymph # (Auto) 0.5 L Winkler # (Auto) 0.7 Eos # (Auto) 0.0 Baso # (Auto) 0.0 Absolute Nucleated RBC 0.00 Nucleated RBC % 0.0 Sodium 134 L Potassium 4.2 Chloride 101 Carbon Dioxide 26 Anion Gap 7.0 BUN 56 H Creatinine 1.7 H Estimated GFR (MDRD) 29 L Glucose 255 H Calcium 10.0 Total Bilirubin 0.5 AST 30 ALT 39 Alkaline Phosphatase 89 Total Protein 7.7 Albumin 4.1 Globulin 3.6 Albumin/Globulin Ratio 1.1 Lipase 37 Urine Color YELLOW Urine Clarity SL. CLOUDY Urine pH 6.0 Ur Specific [place] 1.015 Urine Protein TRACE Urine Glucose (UA) 100 H Urine Ketones NEGATIVE Urine Occult Blood SMALL H Urine Nitrite NEGATIVE Urine Bilirubin NEGATIVE Urine Urobilinogen 0.2 (NORMAL) Ur Leukocyte Esterase SMALL H Urine RBC 6-10 H Urine WBC 11-25 H Ur Squamous Epith Cells RARE Squamous Urine Bacteria Moderate H Ur Microscopic Review INDICATED Urine Culture Comments INDICATED Procedures IVC sono (time) 0920: Bedside IVC sono: IVC measures (cm) (0.64) and Significant dehydration (est 3 liter deficit) PD Medical Decision Making ED course Complexity details: reviewed old records, reviewed results, re-evaluated p atient, considered differential, d/w patient and d/w family Reviewed Lab Results: We reviewed a complete blood count showing a normal white blood cell count normal hemoglobin hematocrit and platelets and normal differential chemistries show an elevated BUN of 56 and a creatinine of 1.7 elevated from her prior 7 months ago. Glucose is elevated at 255 record for the patient. Liver functions are unremarkable. Urinalysis done today shows some glucose in the urine small leukocyte Estrace small occult blood 6-10 red blood cells per high-powered field and 11-25 white blood cells per high-powered field with moderate bacteria the specimen did make the grade for culture. I interpreted these test to indicate that the patient likely has urinary tract infection and she is dehydrated more than her usual. Social Determinants of Health: The patient lives alone ED course: Ivonne Rivera is an 84-year-old female with a history of diabetes and hypertension who is on glipizide. She indicates that over the past month she has developed some urinary incontinence and subsequently developed urinary frequency over the past 3 days but has become profound. I directly asked her if she had decreased her fluid intake because of her frequent urination and she confirmed this. We have found she is profoundly dehydrated on the order of greater than 3 L of saline and she has a urinary tract infection. She has prior CVA she has some mild dysarthria associated with that. We treated her in the emergency department with saline 2 L she felt improved continues to have a good urine output. At the conclusion of treatment I asked the patient if she felt well enough to go home and she was ambivalent. She does not have a strong desire to go home. Given the level of dehydration and the comorbidities of prior CVA and the fact the patient lives alone I considered admission to the hospital a safe disposition for care of this patient. Discharge Plan Discharge Patient Disposition: ED Place in Observation Condition: Fair Clinical Impression: Dehydration Urinary tract infection Qualifiers: Urinary tract infection type: acute cystitis Hematuria presence: with hematuria Qualified Code(s): N30.01 - Acute cystitis with hematuria Interventions: ED Admission Assessment Last Done: 08/29/24 14:15
[2024-08-29] MEDS: SODIUM CHLORIDE 0.9% 1,000 ML IV STA ×2 (09:44→11:25)
[2024-08-29 09:47] LABS: BASOPHILS % (AUTO) 0.3 %; EOSINOPHILS % (AUTO) 0.4 %; HCT - HEMATOCRIT 40.4 % (37.0-47.0); HGB - HEMOGLOBIN 13.1 g/dL (12.0-16.0); LYMPHOCYTES # (AUTO) 0.5 10^3/uL (1.5-3.5); LYMPHOCYTES % (AUTO) 6.6 %; MEAN CORPUSCULAR HEMOGLOBIN 30.8 pg (27.0-31.0); MEAN CORPUSCULAR HGB CONC 32.4 g/dL (32.0-36.0); MEAN CORPUSCULAR VOLUME 94.8 fL (81.0-99.0); MEAN PLATELET VOLUME 10.7 fL (7.9-10.8); MONOCYTES # (AUTO) 0.7 10^3/uL (0.0-1.0); MONOCYTES % (AUTO) 9.3 %; NEUTROPHILS # (AUTO) 6.1 10^3/uL (1.5-6.6); PLT - PLATELET COUNT 190 10^3/uL (130-450); RED BLOOD COUNT 4.26 10^6/uL (4.20-5.40); RED CELL DISTRIBUTION WIDTH 12.2 % (12.0-15.0); WHITE BLOOD COUNT 7.4 x10^3/uL (4.8-10.8)
[2024-08-29] MEDS: ONDANSETRON 4 MG/2 ML VIAL IVP STA (09:52)
[2024-08-29 10:00] LABS: ALBUMIN 4.1 g/dL (3.2-5.5); ALBUMIN/GLOBULIN RATIO 1.1 (1.0-2.2); BILIRUBIN,TOTAL 0.5 mg/dL (0.2-1.0); CREATININE 1.7 mg/dL (0.6-1.3); POTASSIUM 4.2 mmol/L (3.5-4.5); TOTAL PROTEIN 7.7 g/dL (6.4-8.9)
[2024-08-29 11:19] LABS: BILIRUBIN,URINE NEGATIVE (NEGATIVE); GLUCOSE, URINE (UA) 100 mg/dL (NEGATIVE); KETONES,URINE (UA) NEGATIVE (NEGATIVE); LEUKOCYTE ESTERASE, URINE SMALL (NEGATIVE); NITRITE,URINE NEGATIVE (NEGATIVE); OCCULT BLOOD,URINE SMALL (NEGATIVE); PROTEIN,URINE TRACE mg/dL (NEGATIVE); UROBILINOGEN,URINE 0.2 (NORMAL) E.U./dL (NORMAL)
[2024-08-29 11:20] LABS: CLARITY,URINE SL. CLOUDY (CLEAR)
[2024-08-29 11:24] LABS: BACTERIA,URINE Moderate /HPF (None Seen); SQUAMOUS EPITHELIAL CELL,UR RARE Squamous (<= Few)
[2024-08-29] MEDS: cefTRIAXone 1 GM in SODIUM CHLORIDE 0.9% MINIBAG 100 ML IV STA (12:51)
[2024-08-29] MEDS ORDERED: HYDROcod/ACETAM 5/325 MG TABLET PO PRN (14:18)
[2024-08-29] MEDS ORDERED: SODIUM CHLORIDE FLUSH 0.9% 10 ML SYRINGE IVP PRN (14:18)
[2024-08-29] MEDS ORDERED: hydrALAZINE INJ 20 MG/ML VIAL IVP PRN (14:27)
[2024-08-29] MEDS: CIPROFLOXACIN 250 MG TABLET PO SCH (15:03)
[2024-08-29] MEDS: ONDANSETRON ODT 4 MG TABLET TL PRN (15:20)
--- NOTE | 2024-08-29 15:54 | HISTORY & PHYSICAL EXAMINATION ---
Chief Complaint Chief Complaint Chief Complaint: Frequent urination History of Present Illness Admitted From Admitted From:: ED History Obtained From Records Reviewed: ED History obtained from: Patient, Dr Forman - ED attending Exam Limitations: None History of Present Illness HPI Comment/Other: Patient is an 84-year-old female with a PMH Of CVA with residual mild gait disturbance without focal neurological extremity deficits, with resultant dysarthria and possibly some expressive aphasia, as well as history of type 2 diabetes, and hypertension with a 2 to 3-day history of frequent urination and decreased appetite. She lives alone and is brought to the ED by her neighbor, on a lease, who was checking on her and found her to be struggling with difficulty going to the bathroom due to the frequent urination so they decided to bring her to the ED. Here in the ER, she was hemodynamically stable and had reassuring vital signs. Her lab work also showed no evidence of leukocytosis here in the ER, she was hemodynamically stable and had reassuring vital signs. Her lab work also showed no evidence of leukocytosis and she had no SIRS or sepsis criteria met. She did however have a urinalysis suggestive of a UTI. She was otherwise stable and initially deemed to be medically stable for discharge home on p.o. antibiotics however because of the patient's unsteady gait and frequent urination there was some concern that the patient may pose a fall risk should she go home and have to ambulate to the bathroom very frequently while living alone. Therefore a hospital observation was requested. Antibiotics were discussed with the ED attending and we agreed we would initiate antibiotics after admission as the patient had multiple allergies and antibiotic intolerances that needed some time to review. Meds/Allgy Home Medications Ambulatory Orders Medication Instructions Recorded Confirmed glipizide 2.5 mg tablet, extended 2.5 mg PO .QD 08/29/24 release 24 hr lisinopril 40 mg tablet 20 mg PO .QD 08/29/24 metoprolol succinate 25 mg 12.5 mg PO .QHS 08/29/24 tablet,extended release 24 hr metronidazole 0.75 % topical gel 1 applic topical BID 08/29/24 08/29/24 Allergies Allergies Allergy/AdvReac Type Severity Reaction Status Date / Time cephalexin (From Keflex) Allergy Unknown Unknown Verified 08/29/24 08:50 Tetracyclines Allergy Unknown Unknown Verified 08/29/24 08:50 PFSH Active Problems All Active Problems (Updated 08/29/24 @ 15:53 by Sarthak Montalvo MD) CKD (chronic kidney disease) stage 4, GFR 15-29 ml/min (Acute) HTN (hypertension) (Acute) Urinary tract infection (Acute) Dehydration (Acute) Medical History Medical History Hx of completed stroke Diabetes Social History Social History Smoking Status: Never smoker Relationship: Level: Independent Do you feel safe in your home environment?: Yes Suffered physical, verbal, emotional, or financial abuse?: No Substance Use: denies use POLST Patient has POLST: No POLST Status: Full Code Review of Systems Status of ROS: 10 or more systems reviewed and unremarkable except as noted in history and below Prior Level of Functionality: The patient states she is ambulatory living alone in a 2 bedroom home and usually able to do so independently and she is able to go up the stairs but admits that this does pose a challenge for her at times. Exam Exam Vital Signs: Vital Signs x48h Temp Pulse Pulse Resp BP BP Pulse Ox 08/29/24 15:00 36.7 C 85 12 128/79 94 08/29/24 14:00 87 18 171/79 H 95 08/29/24 12:00 84 18 158/85 H 95 08/29/24 10:53 73 15 152/78 H 98 08/29/24 08:57 154/66 H 08/29/24 08:40 36.7 C 91 18 97 Constitutional normal general appearance and no apparent distress [facility] normocephalic, head/scalp atraumatic and dentition normal Respiratory breath sounds equal bilaterally, normal respiratory effort and clear to auscultation bilaterally Cardiovascular normal heart rate noted, regular rhythm noted and murmur noted Gastrointestinal abdomen normal to inspection, abdomen soft to palpation, nondistended and normoactive bowel sounds Genitourinary no CVA tenderness Extremities normal to inspection and no tenderness Neurology burn crew member II-XII intact, no movement abnormality noted, focal motor deficit noted, speech normal and coordination normal Patient has mild facial muscle weakness consistent with previous stroke but no facial droop Psychiatry mental status grossly normal Skin skin color normal Sepsis Event Note (H) Evaluation Current Stage of Sepsis: Ruled out Conclusion/Plan Problem List (1) Urinary tract infection: Plan: * Urinalysis consistent with UTI without evidence of sepsis or SIRS * With respect to the UTI, she could adequately be treated with p.o. antibiotics however because of the patient's history of CVA with gait compromise and high risk for fall nature, it would be prudent to place the patient in observation overnight to aid the patient while antibiotics improve her symptoms * Given patient's history of multiple antibiotic allergies, will start with p.o. Cipro renally dosed and if possible adjust antibiotics as able pending urine cultures Qualifiers: Hematuria presence: with hematuria Urinary tract infection type: acute cystitis Qualified Code(s): N30.01 - Acute cystitis with hematuria (2) Diabetes: Plan: * Blood sugar elevated in the ED * Will hold patient's glipizide * Initiate insulin sliding scale with diabetic diet, minced Qualifiers: Diabetes mellitus type: type 2 Diabetes mellitus retirement insulin use: without termite helper use Diabetes mellitus complication status: with kidney complications Diabetes mellitus complication detail: with chronic kidney disease Chronic kidney disease stage: stage 4 (GFR 15-29) Qualified Code(s): E 11.22 - Type 2 diabetes mellitus with diabetic chronic kidney disease; N18.4 - Chronic kidney disease, stage 4 (severe) (3) Hx of completed stroke: Plan: * Pt w/ resultant gait disturbance, w/ out extremity focal weakness * Resume home ASA (4) HTN (hypertension): Plan: * Stable * Cont Lisinopril Qualifiers: Hypertension type: primary hypertension Qualified Code(s): I10 - Essential (primary) hypertension (5) CKD (chronic kidney disease) stage 4, GFR 15-29 ml/min: Plan: * Cr of 1.7 appears to be inline with her baseline * Given IVF in ED, so will hold off on further fluids and monitor UOP and repeat BMP in am Lab Results Lab results reviewed: Yes 08/29/24 09:40 08/29/24 09:40 EKG Results EKG Interpreted Independently: Yes
--- NOTE | 2024-08-29 16:12 | PHARMACY PROGRESS NOTE ---
Best Possible Medication History Admit Date and Time: 08/29/24 [id number] Home Medications Medication Instructions Recorded Confirmed Type acetaminophen 500 mg tablet 500 mg PO Q6H PRN pain 08/29/24 History (Tylenol Extra Strength) aspirin 81 mg tablet 81 mg PO DAILY 08/29/24 05/10/08 History glipizide 2.5 mg tablet, extended 2.5 mg PO .QD 08/29/24 History release 24 hr lisinopril 40 mg tablet 20 mg PO .QD 08/29/24 History metoprolol succinate 25 mg 12.5 mg PO .QHS 08/29/24 History tablet,extended release 24 hr metronidazole 0.75 % topical gel 1 applic topical BID 08/29/24 08/29/24 History Processed by: Pharmacy Medications reviewed in ED?: No Medication History completed: Yes Patient Interview: Completed Secondary Source(s): Insurance records [facility] Statement: Pt interview with level vial inside grinder and [employer] Rx records on hand for review. As the person ultimately responsible for medication therapy, providers are able to order a medication from an existing home medication list in [facility] via the "Reconcile Routine" prior to Confirmation of that medication by network support administrator. Such practice is discouraged except when the physician, in their clinical judgment, deems that a medical need exists for a medication without regard to previous use.
[2024-08-29] MEDS: INSULIN LISPRO 300 UNIT/3 ML PEN SUBQ SCH (17:52)
[2024-08-29] MEDS: SODIUM CHLORIDE FLUSH 0.9% 10 ML SYRINGE IVP SCH (17:53)
[2024-08-29] MEDS: ACETAMINOPHEN 325 MG TABLET PO PRN (20:56)
[2024-08-30 05:52] LABS: CALCIUM 8.8 mg/dL (8.5-10.3); CREATININE 1.6 mg/dL (0.6-1.3); POTASSIUM 4.1 mmol/L (3.5-4.5)
[2024-08-30] MEDS: lisinopriL 20 MG TABLET PO SCH (08:11)
[2024-08-30] MEDS: PRENATAL VITAMIN TABLET PO SCH (08:12)
[2024-08-30] MEDS: METOPROLOL SUCCINATE 25 MG TABLET PO SCH (08:12)
--- NOTE | 2024-08-30 17:55 | PROVIDER PROGRESS NOTE ---
Assessment/Plan Problem List (1) Urinary tract infection: Qualifiers: Hematuria presence: with hematuria Urinary tract infection type: acute cystitis Qualified Code(s): N30.01 - Acute cystitis with hematuria Assessment/Plan: * Patient is improving, strength is better but still weak enough that the patient does not feel comfortable discharging home given that she has to go up a flight of stairs and lives alone. She does not feel like she is strong enough to go up a flight of stairs * She remains afebrile, lab work is reassuring * Preliminary results show gram-negative rods * Will continue p.o. 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 - Type 2 diabetes mellitus with diabetic chronic kidney disease; N18.4 - Chronic kidney disease, stage 4 (severe) Assessment/Plan: * Blood sugar elevated in the ED * Will hold patient's glipizide * Initiate insulin sliding scale with diabetic diet, minced (3) Hx of completed stroke: Assessment/Plan: * Pt w/ resultant gait disturbance, w/ out extremity focal weakness * Resume home ASA (4) HTN (hypertension): Qualifiers: Hypertension type: primary hypertension Qualified Code(s): I10 - Essential (primary) hypertension Assessment/Plan: * Stable * Cont Lisinopril (5) CKD (chronic kidney disease) stage 4, GFR 15-29 ml/min: Assessment/Plan: * Cr of 1.7 appears to be inline with her baseline * Given IVF in ED, so will hold off on further fluids and monitor UOP and repeat BMP in am Current Meds Current Meds: Current Medications Generic Name Dose Route Start Last Admin Trade Name Freq PRN Reason Stop Dose Admin Acetaminophen 650 mg 08/29/24 14:18 08/30/24 16:00 Acetaminophen 325 Mg Tablet PO 650 mg Q4HR PRN Administration Pain 1 to 4, or Fever Hydrocodone Bitart/Acetaminophen 1 tab 08/29/24 14:18 Hydrocod/Acetam 5/325 Mg Tablet PO Q4HR PRN Pain 5 to 7 Ciprofloxacin 500 mg 08/29/24 15:00 08/30/24 15:48 Ciprofloxacin 250 Mg Tablet PO [address] Administration Hydralazine HCl 10 mg 08/29/24 14:27 Hydralazine Inj 20 Mg/Ml Vial IVP DAILY PRN Blood Pressure Insulin Human Lispro 1 - 5 unit 08/29/24 17:00 08/30/24 12:00 Insulin Lispro 300 Unit/3 Ml Pen SUBQ 1 unit 0800,1200,1700,2100 LANE Administration Protocol Lisinopril 20 mg 08/30/24 09:00 08/30/24 08:11 Lisinopril 20 Mg Tablet PO [address] Administration Metoprolol Succinate 25 mg 08/30/24 09:00 08/30/24 08:12 Metoprolol Succinate 25 Mg Tablet PO [address] Administration Ondansetron HCl 4 mg 08/29/24 14:18 08/30/24 17:10 Ondansetron Odt 4 Mg Tablet TL 4 mg Q6HR PRN Administration Nausea / Vomiting Multivit/Folic Acid/Iron 1 tab 08/30/24 08:00 08/30/24 08:12 Vitamin Tablet PO [address] Administration Sodium Chloride 10 ml 08/29/24 17:00 08/30/24 15:49 Sodium Chloride Flush 0.9% 10 Ml Syringe IVP 10 ml 0100,0900,1700 LANE Administration Sodium Chloride 10 ml 08/29/24 14:18 Sodium Chloride Flush 0.9% 10 Ml Syringe IVP PRN PRN NEEDED PER PROVIDER ORDERS Zinc Oxide 113 gm 08/30/24 10:39 Cod Liver Oil/Zinc Oxide 113 Gm Tube TOP PRN PRN Skin Care Lab Result 08/29/24 09:40 08/30/24 04:56 Additional Planning My Orders: My Active Orders 08/29/24 17:00 Insulin Lispro [Humalog Kwikpen U-100] 1 - 5 unit SUBQ 0800,1200,1700,2100 Sodium Chloride Flush 0.9% [Normal Saline Flush 0.9%] 10 ml IVP 0100,0900,1700 08/30/24 ADMIT [Admission Order] Routine 08/30/24 08:00 Vitamin [Trinatal Rx 1] 1 tab PO DAILYWM 08/30/24 09:00 Metoprolol Succinate [Toprol Xl] 25 mg PO DAILY lisinopriL [Zestril] 20 mg PO DAILY 08/30/24 10:39 Cod Liver Oil/Zinc Oxide [Desitin] 113 gm TOP PRN PRN 08/31/24 05:00 BMP - BASIC METABOLIC PANEL [CHEM] DAILYLAB 09/01/24 05:00 BMP - BASIC METABOLIC PANEL [CHEM] DAILYLAB Objective Vital Signs: Vital Signs - 24 hr 08/29/24 20:55 08/29/24 20:56 08/29/24 20:56 Temperature 37.0 C Temperature Source Skin Pulse Rate [Brachial] 82 Respiratory Rate 16 Blood Pressure [Right Brachial artery] 149/85 H O2 Saturation 94 O2 Source Room air Sedation scale 0-Fully awake Pain Intensity 2 Pain Intensity [back] 2 Pain Intensity [head] 08/29/24 21:55 08/29/24 23:41 08/30/24 04:00 Temperature 36.7 C Temperature Source Skin Pulse Rate [Brachial] 73 Respiratory Rate 14 Blood Pressure [Right Brachial artery] 120/74 O2 Saturation 97 O2 Source Room air Sedation scale 1-Arouses easily Pain Intensity 0 0 Pain Intensity [back] 0 Pain Intensity [head] 08/30/24 04:54 08/30/24 05:37 08/30/24 05:37 Temperature 36.5 C Temperature Source Skin Pulse Rate [Brachial] 70 Respiratory Rate 16 Blood Pressure [Right Brachial artery] 126/61 O2 Saturation 96 O2 Source Room air Sedation scale 1-Arouses easily Pain Intensity 2 Pain Intensity [back] 2 Pain Intensity [head] 08/30/24 07:53 08/30/24 07:58 08/30/24 11:02 Temperature 37.0 C 36.8 C Temperature Source Oral Temporal Artery Scan Pulse Rate [Brachial] 74 70 Respiratory Rate 20 16 Blood Pressure [Right Brachial artery] 125/65 138/77 H O2 Saturation 95 96 O2 Source Room air Room air Sedation scale 0-Fully awake 0-Fully awake Pain Intensity 0 1 0 Pain Intensity [back] Pain Intensity [head] 08/30/24 15:44 08/30/24 16:00 08/30/24 16:00 Temperature 37.2 C Temperature Source Temporal Artery Scan Pulse Rate [Brachial] 76 Respiratory Rate 16 Blood Pressure [Right Brachial artery] 156/83 H O2 Saturation 96 O2 Source Room air Sedation scale 0-Fully awake Pain Intensity 0 2 Pain Intensity [back] Pain Intensity [head] 2 08/30/24 17:11 Temperature Temperature Source Pulse Rate [Brachial] Respiratory Rate Blood Pressure [Right Brachial artery] O2 Saturation O2 Source Sedation scale Pain Intensity 1 Pain Intensity [back] Pain Intensity [head] Oxygen O2 Source Room air I&O (Last 24 Hrs): Intake and Output Totals x24h 08/28/24 08/29/24 08/30/24 23:59 23:59 23:59 Intake Total 2620 / 2620 770 / 770 Output Total 500 / 500 500 / 500 Balance 2120 / 2119 270 / 270 Results Results: Laboratory Results WBC 7.4 x10^3/uL (4.8-10.8) 08/29/24 09:40 RBC 4.26 10^6/uL (4.20-5.40) 08/29/24 09:40 Hgb 13.1 g/dL (12.0-16.0) 08/29/24 09:40 Hct 40.4 % (37.0-47.0) 08/29/24 09:40 MCV 94.8 fL (81.0-99.0) 08/29/24 09:40 MCH 30.8 pg (27.0-31.0) 08/29/24 09:40 MCHC 32.4 g/dL (32.0-36.0) 08/29/24 09:40 RDW 12.2 % (12.0-15.0) 08/29/24 09:40 Plt Count 190 10^3/uL (130-450) 08/29/24 09:40 MPV 10.7 fL (7.9-10.8) 08/29/24 09:40 Neut # (Auto) 6.1 10^3/uL (1.5-6.6) 08/29/24 09:40 Lymph # (Auto) 0.5 10^3/uL (1.5-3.5) L 08/29/24 09:40 [place] # (Auto) 0.7 10^3/uL (0.0-1.0) 08/29/24 09:40 Eos # (Auto) 0.0 10^3/uL (0.0-0.7) 08/29/24 09:40 Baso # (Auto) 0.0 10^3/uL (0.0-0.1) 08/29/24 09:40 Absolute Nucleated RBC 0.00 x10^3/uL 08/29/24 09:40 Nucleated RBC % 0.0 /100WBC 08/29/24 09:40 Sodium 140 mmol/L (135-145) 08/30/24 04:56 Potassium 4.1 mmol/L (3.5-4.5) 08/30/24 04:56 Chloride 108 mmol/L (101-111) 08/30/24 04:56 Carbon Dioxide 26 mmol/L (21-32) 08/30/24 04:56 Anion Gap 6.0 (6-13) 08/30/24 04:56 BUN 37 mg/dL (6-20) H 08/30/24 04:56 Creatinine 1.6 mg/dL (0.6-1.3) H 08/30/24 04:56 Estimated GFR (MDRD) 31 (>89) L 08/30/24 04:56 Glucose 106 mg/dL (74-104) H 08/30/24 04:56 POC Whole Bld Glucose 151 mg/dL (70-100) 08/30/24 16:37 Calcium 8.8 mg/dL (8.5-10.3) 08/30/24 04:56 Total Bilirubin 0.5 mg/dL (0.2-1.0) 08/29/24 09:40 AST 30 IU/L (10-42) 08/29/24 09:40 ALT 39 IU/L (10-60) 08/29/24 09:40 Alkaline Phosphatase 89 IU/L (42-121) 08/29/24 09:40 Total Protein 7.7 g/dL (6.4-8.9) 08/29/24 09:40 Albumin 4.1 g/dL (3.2-5.5) 08/29/24 09:40 Globulin 3.6 g/dL (2.1-4.2) 08/29/24 09:40 Albumin/Globulin Ratio 1.1 (1.0-2.2) 08/29/24 09:40 Lipase 37 U/L (11-82) 08/29/24 09:40 Urine Color YELLOW 08/29/24 11:09 Urine Clarity SL. CLOUDY (CLEAR) 08/29/24 11:09 Urine pH 6.0 PH (5.0-7.5) 08/29/24 11:09 Ur Specific [place] 1.015 (1.002-1.030) 08/29/24 11:09 Urine Protein TRACE mg/dL (NEGATIVE) 08/29/24 11:09 Urine Glucose (UA) 100 mg/dL (NEGATIVE) H 08/29/24 11:09 Urine Ketones NEGATIVE mg/dL (NEGATIVE) 08/29/24 11:09 Urine Occult Blood SMALL (NEGATIVE) H 08/29/24 11:09 Urine Nitrite NEGATIVE (NEGATIVE) 08/29/24 11:09 Urine Bilirubin NEGATIVE (NEGATIVE) 08/29/24 11:09 Urine Urobilinogen 0.2 (NORMAL) E.U./dL (NORMAL) 08/29/24 11:09 Ur Leukocyte Esterase SMALL (NEGATIVE) H 08/29/24 11:09 Urine RBC 6-10 /HPF (0-5) H 08/29/24 11:09 Urine WBC 11-25 /HPF (0-5) H 08/29/24 11:09 Ur Squamous Epith Cells RARE Squamous (<= Few) 08/29/24 11:09 Urine Bacteria Moderate /HPF (None Seen) H 08/29/24 11:09 Ur Microscopic Review INDICATED 08/29/24 11:09 Urine Culture Comments INDICATED 08/29/24 11:09 Sepsis Event Note (H) Evaluation Current Stage of Sepsis: Ruled out ABX Reporting Has patient been on IV antibiotics over the past 48 hours?: No Current Medications Current Medications Current Medications: Current Medications Generic Name Dose Route Start Last Admin Trade Name Freq PRN Reason Stop Dose Admin Acetaminophen 650 mg 08/29/24 14:18 08/30/24 16:00 Acetaminophen 325 Mg Tablet PO 650 mg Q4HR PRN Administration Pain 1 to 4, or Fever Hydrocodone Bitart/Acetaminophen 1 tab 08/29/24 14:18 Hydrocod/Acetam 5/325 Mg Tablet PO Q4HR PRN Pain 5 to 7 Ciprofloxacin 500 mg 08/29/24 15:00 08/30/24 15:48 Ciprofloxacin 250 Mg Tablet PO [address] Administration Hydralazine HCl 10 mg 08/29/24 14:27 Hydralazine Inj 20 Mg/Ml Vial IVP DAILY PRN Blood Pressure Insulin Human Lispro 1 - 5 unit 08/29/24 17:00 08/30/24 12:00 Insulin Lispro 300 Unit/3 Ml Pen SUBQ 1 unit 0800,1200,1700,2100 LANE Administration Protocol Lisinopril 20 mg 08/30/24 09:00 08/30/24 08:11 Lisinopril 20 Mg Tablet PO [address] Administration Metoprolol Succinate 25 mg 08/30/24 09:00 08/30/24 08:12 Metoprolol Succinate 25 Mg Tablet PO [address] Administration Ondansetron HCl 4 mg 08/29/24 14:18 08/30/24 17:10 Ondansetron Odt 4 Mg Tablet TL 4 mg Q6HR PRN Administration Nausea / Vomiting Multivit/Folic Acid/Iron 1 tab 08/30/24 08:00 08/30/24 08:12 Vitamin Tablet PO [address] Administration Sodium Chloride 10 ml 08/29/24 17:00 08/30/24 15:49 Sodium Chloride Flush 0.9% 10 Ml Syringe IVP 10 ml 0100,0900,1700 LANE Administration Sodium Chloride 10 ml 08/29/24 14:18 Sodium Chloride Flush 0.9% 10 Ml Syringe IVP PRN PRN NEEDED PER PROVIDER ORDERS Zinc Oxide 113 gm 08/30/24 10:39 Cod Liver Oil/Zinc Oxide 113 Gm Tube TOP PRN PRN Skin Care
[2024-08-30] MEDS: COD LIVER OIL/ZINC OXIDE 113 GM TUBE TOP PRN (23:50)
[2024-08-31 00:11] VITALS: O2SAT 96
[2024-08-31 06:34] LABS: CALCIUM 9.1 mg/dL (8.5-10.3); CREATININE 1.6 mg/dL (0.6-1.3); POTASSIUM 4.3 mmol/L (3.5-4.5)
[2024-08-31 08:12] VITALS: BP 146/75; TEMP 98.6
--- NOTE | 2024-08-31 11:05 | Discharge Summary ---
Discharge Summary Admit Date: 08/29/24 Discharge Date: 08/31/24 Discharging Provider: Dr Sarthak Montalvo MD Primary Care Provider: Saad Foy PA-C Code Status: Attempt Resuscitation DIAGNOSES Admission Diagnoses: UTI Type 2 diabetes History of stroke HTN CKD stage IV Discharge Diagnoses with Status of Each Condition: UTI - Improved Type 2 diabetes - Stable History of stroke - Stable HTN - Stable CKD stage IV - Stable HPI History of Present Illness: Patient is an 84-year-old female with a PMH Of CVA with residual mild gait disturbance without focal neurological extremity deficits, with resultant dysarthria and possibly some expressive aphasia, as well as history of type 2 diabetes, and hypertension with a 2 to 3-day history of frequent urination and decreased appetite. She lives alone and is brought to the ED by her neighbor, on a lease, who was checking on her and found her to be struggling with difficulty going to the bathroom due to the frequent urination so they decided to bring her to the ED. Here in the ER, she was hemodynamically stable and had reassuring vital signs. Her lab work also showed no evidence of leukocytosis here in the ER, she was hemodynamically stable and had reassuring vital signs. Her lab work also showed no evidence of leukocytosis and she had no SIRS or sepsis criteria met. She did however have a urinalysis suggestive of a UTI. She was otherwise stable and initially deemed to be medically stable for discharge home on p.o. antibiotics however because of the patient's unsteady gait and frequent urination there was some concern that the patient may pose a fall risk should she go home and have to ambulate to the bathroom very frequently while living alone. Therefore a hospital observation was requested. Antibiotics were discussed with the ED attending and we agreed we would initiate antibiotics after admission as the patient had multiple allergies and antibiotic intolerances that needed some time to review. HOSPITAL COURSE Hospital Course: The decision was made to admit this patient primarily because of the history of stroke and her difficulty with mobility in the setting of a UTI. In addition to this, she had nausea and vomiting with difficulty with p.o. intake. Most of these symptoms improved such that by the day of discharge she was nearly at her baseline and was feeling better about a safe discharge plan home. She was maintained on p.o. antibiotics the entire time. On the day of discharge the urine culture sensitivities returned showing E. coli that was essentially pansensitive including to the Cipro that she was being given. She was given an additional 2 doses by prescription to take at home. I discussed this plan with her neighbors as well as the patient so that she could have some support at home and all were in agreement that she was safe to go home where her son would also be staying with her temporarily until she was back on her feet. ALLERGIES Allergies Allergy/AdvReac Type Severity Reaction Status Date / Time cephalexin (From Keflex) Allergy Unknown Unknown Verified 08/29/24 08:50 Tetracyclines Allergy Unknown Unknown Verified 08/29/24 08:50 MEDICATIONS Ambulatory Orders Medication Instructions Recorded Confirmed acetaminophen 500 mg tablet 500 mg PO Q6H PRN pain 08/29/24 (Tylenol Extra Strength) aspirin 81 mg tablet 81 mg PO DAILY 08/29/2408/14 glipizide 2.5 mg tablet, extended 2.5 mg PO .QD 08/29/24 release 24 hr lisinopril 40 mg tablet 20 mg PO .QD 08/29/24 metoprolol succinate 25 mg 12.5 mg PO .QHS 08/29/24 tablet,extended release 24 hr metronidazole 0.75 % topical gel 1 applic topical BID 08/29/24 08/29/24 ciprofloxacin HCl 250 mg tablet 500 mg (2 x 250 mg) PO Q24H 2 days 08/31/24 #4 tabs PHYSICAL EXAM AT DISCHARGE Vital Signs: Vital Signs x48h Temp Pulse Resp BP Pulse Ox 08/31/24 08:00 37 C 82 15 146/75 H 96 General Appearance: positive No acute distress and Alert Respiratory: positive No respiratory distress Cardiovascular: positive Regular rate & rhythm, No murmur and No gallop Abdomen: positive Non-tender, No organomegaly and Nml bowel sounds Extremities: positive Non-tender and Nml appearance Neurologic/Psychiatric: positive Oriented x3, CN's nml (2-12) and Slurred/abnml speech (Expressive aphasia) LABS 08/29/24 09:40 08/31/24 05:54 SEPSIS Current Stage of Sepsis: Ruled out FOLLOW UP Follow Up: F/u with PCP TIME SPENT Time Spent in Discharge (Minutes): 40 Discharge Plan Discharge Patient Disposition: Home, Self Care Condition: Fair Medically Cleared Date:: 08/31/24 Prescriptions: New ciprofloxacin HCl 250 mg Tablet 500 mg PO Q24H 2 Days Qty: 4 0RF Continued glipizide 2.5 mg tablet extended release 24hr 2.5 mg PO .QD Patient Comments: TAKE 1 TABLET BY MOUTH EVERY DAY lisinopril 40 mg tablet 20 mg PO .QD metoprolol succinate 25 mg tablet extended release 24 hr 12.5 mg PO .QHS Patient Comments: TAKE 1/2 TABLET BY MOUTH EVERY NIGHT AT BEDTIME metronidazole 0.75 % gel 1 applic TOPICAL BID Patient Comments: APPLY THIN LAYER TOPICALLY TO FACE TWICE DAILY acetaminophen [Tylenol Extra Strength] 500 mg tablet 500 mg PO Q6H PRN (Reason: pain) aspirin 81 mg tablet 81 mg PO DAILY Activity Restrictions: Activity as Tolerated Diet: Diabetic Health Concerns: You were treated for a UTI during this hospital admission. The urine culture results did come back and fortunately we were able to determine you are infected with a E. coli that is sensitive to the antibiotics you were given in the hospital. Basically this means there was no resistance to the antibiotics that we need to worry about. I would anticipate you to be cleared from this infection within a couple of days. Of note, your kidney function is less than ideal. This led us to make an adjustment to the typical dose of your antibiotic, Cipro. With respect to the remainder of your medications, in particular lisinopril, I would recommend considering dose adjustment to this medication. I like you to follow this up with your PCP. One suggestion would be to reduce the dose of lisinopril and if your blood pressure increases then you could increase the dose of metoprolol. But this will require some monitoring of your blood pressures and heart rate so I will defer this to your PCP. Print Language: Yakut Patient Instructions: UTI Follow-up Care: SAAD FOY PA [Primary Care Provider] -
== END 2024-08-31 14:07 | disposition home or self-care (01) | DRG 690 ==
LOC: ED 08:35 → MS3 08:35
PROVIDERS: ADMIT Family Medicine Sports Medicine; ATTEND Family Medicine Sports Medicine
DX: I12.9 Hypertensive chronic kidney disease with stage 1 through stage 4 chronic kidney disease, or unspecified chronic kidney disease; R63.0 Anorexia; E11.22 Type 2 diabetes mellitus with diabetic chronic kidney disease; E86.0 Dehydration; I69.398 Other sequelae of cerebral infarction; I69.320 Aphasia following cerebral infarction; Z68.23 Body mass index [BMI] 23.0-23.9, adult; B96.20 Unspecified Escherichia coli [E. coli] as the cause of diseases classified elsewhere; R11.2 Nausea with vomiting, unspecified; Z79.84 Long term (current) use of oral hypoglycemic drugs; Z60.2 Problems related to living alone; I69.322 Dysarthria following cerebral infarction; N18.4 Chronic kidney disease, stage 4 (severe); R26.89 Other abnormalities of gait and mobility; N30.01 Acute cystitis with hematuria